=== PATIENT | female | born 1995 | race Caucasian/White ===

== ENCOUNTER 2017-03-28 12:21 | Emergency (ER) | payer OTHER ==
[~2017-03-28] VITALS: Ht 172.7 cm; Wt 106.3 kg
[~2017-03-28 12:21] MED LIST: ALBUTEROL INH; ALBUTEROL17 GM INH; AMOXICILLIN500 M1 PO; AUGMENTIN875 M1 PO; BENZONATATE PO; DICLEGIS DR 101 EACH PO; NO MEDICATIONS; PHENERGAN25 MG PO; PRENATAL1 TA1 PO; ROBITUSSIN A-C S5 ML PO
== END 2017-03-28 14:37 | disposition home or self-care (01) ==
LOC: SED 12:21
DX: J03.90 Acute tonsillitis, unspecified (principal)
CPT/HCPCS: 87651; 99283